=== PATIENT | male | born 1965 | race Caucasian/White ===

== ENCOUNTER → 2019-04-13 | Outpatient (CLI) | payer OTHER ==
[~2019-04-13] MED LIST: None at this Time
[2019-04-13 09:51] LABS: MICROSCOPIC NOT IND
[2019-04-13 09:51] LABS: BASOPHILS # (AUTO) 0.04 x10^3/uL (0-0.1); BASOPHILS % (AUTO) 1 % (0-1); EOSINOPHILS # (AUTO) 0.13 x10^3/uL (0-0.4); EOSINOPHILS % (AUTO) 3 % (1-7); LYMPHOCYTES # (AUTO) 1.29 x10^3/uL (1-3.4); LYMPHOCYTES % (AUTO) 30 % (22-44); MD NO; MEAN CORPUSCULAR HEMOGLOBIN 31.3 pg (27.5-34.5); MEAN CORPUSCULAR HGB CONC 34.1 g/dL (33.2-36.2); MEAN CORPUSCULAR VOLUME 91.8 fL (81-97); MEAN PLATELET VOLUME 8.4 fL (7.4-10.4); MONOCYTES # (AUTO) 0.31 x10^3/uL (0.2-0.8); MONOCYTES % (AUTO) 7 % (2-9); NEUTROPHILS # (AUTO) 2.57 x10^3/uL (1.8-6.8); NEUTROPHILS % (AUTO) 59 % (42-75); PLATELET COUNT 167 x10^3/uL (130-400); RED BLOOD COUNT 5.28 x10^6/uL (4.38-5.82)
[2019-04-13 09:59] LABS: CULTURE INDICATED? NO
[2019-04-13 10:03] LABS: CALCIUM 8.9 mg/dL (8.5-10.1); CHLORIDE 108 mmol/L (98-107); CREATININE 1.24 mg/dL (0.7-1.3)
[2019-04-13 10:15] LABS: INTERNATIONAL NORMALIZED RATIO 0.96 (0.93-1.1); PROTHROMBIN TIME 10.1 Seconds (9.6-11.5)
[2019-04-13 10:33] LABS: ANION GAP 4 mmol/L (5-15)
== END | disposition home or self-care (01) ==
LOC: STAR 08:28
PROVIDERS: ATTEND Neurological Surgery
DX: Z01.818 Encounter for other preprocedural examination (principal); M48.062 Spinal stenosis, lumbar region with neurogenic claudication; Z87.891 Personal history of nicotine dependence
CPT/HCPCS: 36415; 71046; 80048; 81003; 85025; 85610; 85730; 93005

== ENCOUNTER 2019-04-20 05:36 | Inpatient (IN) | payer OTHER ==
[~2019-04-20] VITALS: Ht 175.3 cm; Wt 70.7 kg
[2019-04-20] MEDS ORDERED: LACTATED RINGERS 1,000 ML IV SCH (06:28)
[2019-04-20] MEDS ORDERED: THROMBIN (RECOMBINANT) 5,000 UNIT VIAL TP ONE (06:49)
[2019-04-20] MEDS ORDERED: BUPIVACAINE/PF 0.25% ONE (06:50)
[2019-04-20] MEDS ORDERED: BACITRACIN OINT 500U/GM, 15 GM ONE (06:51)
[2019-04-20] MEDS ORDERED: BACITRACIN 50,000 UNIT ONE (06:51)
[2019-04-20] MEDS ORDERED: EPINEPHRINE 1 MG/ML, 1ML ONE (06:51)
[2019-04-20] MEDS ORDERED: VANCOMYCIN 1,000 MG ONE (06:51)
[2019-04-20] MEDS ORDERED: SCOPOLAMINE PATCH, 1.5MG PATCH.TD72 TD ONE ×2 (07:00→07:05)
[2019-04-20] MEDS ORDERED: ACETAMINOPHEN 500 MG TABLET PO ONE (07:00)
[2019-04-20] MEDS ORDERED: ONDANSETRON ODT 8 MG PO ONE (07:00)
[2019-04-20] MEDS ORDERED: GABAPENTIN 300 MG CAPSULE PO ONE (07:00)
[2019-04-20] MEDS ORDERED: ACETAMINOPHEN 500 MG TABLET ONE (07:04)
[2019-04-20] MEDS ORDERED: ONDANSETRON ODT 8 MG ONE (07:05)
[2019-04-20] MEDS ORDERED: GABAPENTIN 300 MG CAPSULE ONE (07:06)
[2019-04-20] MEDS ORDERED: MIDAZOLAM 1 MG/ML, 2ML ONE (07:12)
[2019-04-20] MEDS ORDERED: CEFAZOLIN 1,000 MG ONE ×2 (07:12)
[2019-04-20] MEDS ORDERED: LIDOCAINE-MPF 2% ,5ML ONE ×2 (07:12)
[2019-04-20] MEDS ORDERED: ROCURONIUM 10MG/ML,5ML ONE (07:12)
[2019-04-20] MEDS ORDERED: PROPOFOL 10 MG/ML, 20ML ONE (07:12)
[2019-04-20] MEDS ORDERED: DEXAMETHASONE 4 MG/ML, 1ML ONE ×2 (07:12)
[2019-04-20] MEDS ORDERED: METOCLOPRAMIDE 5 MG/ML, 2ML ONE (07:13)
[2019-04-20] MEDS ORDERED: KETAMINE 10 MG/ML, 20ML ONE (07:20)
[2019-04-20] MEDS ORDERED: MAGNESIUM SULFATE 1 GM/2 ML ONE (07:20)
[2019-04-20] MEDS ORDERED: LIDOCAINE PF 2%, 5ML ONE (07:30)
[2019-04-20] MEDS ORDERED: LORazepam 2 MG/ML, 1ML IVPush PRN (07:30)
[2019-04-20] MEDS ORDERED: NEOSTIGMINE 1 MG/ML, 10ML ONE (07:30)
[2019-04-20] MEDS ORDERED: MEPERIDINE/PF 25MG/ML,1ML IVPush PRN (07:30)
[2019-04-20] MEDS ORDERED: GLYCOPYRROLATE 0.2MG/1ML, 5ML ONE (07:30)
[2019-04-20] MEDS ORDERED: ONDANSETRON 2MG/ML, 2ML IV PRN ×2 (07:30→12:00)
[2019-04-20] MEDS ORDERED: OXYcodone 5 MG/5 ML ORAL.SOL UDC PO PRN (07:30)
[2019-04-20] MEDS ORDERED: LABETALOL 5MG/ML, 20ML IV PRN (07:30)
[2019-04-20] MEDS ORDERED: HYDROmorphone 2 MG/ML, 1ML IVPush PRN (07:30)
[2019-04-20] MEDS ORDERED: FENTANYL PF 100 MCG/2ML IV PRN (07:30)
[2019-04-20] MEDS ORDERED: hydrALAzine 20 MG/ML, 1ML IV PRN (07:30)
[2019-04-20] MEDS ORDERED: DIPHENHYDRAMINE 50 MG/ML, 1ML IVPush PRN ×2 (07:30→12:00)
[2019-04-20] MEDS ORDERED: FENTANYL PF 100 MCG/2ML ONE (09:54)
[2019-04-20] MEDS ORDERED: METHOCARBAMOL 1,000 MG in DEXTROSE 5% 100 ML IV ONE (10:00)
[2019-04-20] MEDS: OXYcodone/APAP 5/325MG TABLET PO PRN ×3 (11:50→20:38)
[2019-04-20] MEDS ORDERED: HYDROmorphone 2 MG/ML, 1ML IM PRN (12:00)
[2019-04-20] MEDS ORDERED: PROMETHAZINE 25 MG/ML, 1ML IM PRN (12:00)
[2019-04-20] MEDS ORDERED: HYDROmorphone 2MG TABLET PO PRN (12:00)
[2019-04-20] MEDS ORDERED: DIPHENHYDRAMINE 25 MG CAPSULE PO PRN (12:00)
[2019-04-20] MEDS ORDERED: MAGNESIUM HYDROXIDE 8%, 30ML UDC PO PRN (12:00)
[2019-04-20] MEDS ORDERED: HYDROcodone/APAP 5/325 TABLET PO PRN (12:00)
[2019-04-20] MEDS ORDERED: BISACODYL 10 MG SUPP PR PRN (12:00)
[2019-04-20] MEDS ORDERED: DIPHENHYDRAMINE 50 MG/ML, 1ML IM PRN (12:00)
[2019-04-20 13:00] VITALS: BP 107/68
[2019-04-20] MEDS: D5%-0.9% NACL+KCL 20MEQ 1,000 ML IV SCH (15:00)
[2019-04-20] MEDS: CEFAZOLIN PMX 1GM/50ML 50 ML IVPB SCH ×2 (16:14→23:51)
[2019-04-20 19:19] VITALS: BP 112/66
[2019-04-20 23:47] VITALS: BP 105/62
[2019-04-20] MEDS: METHOCARBAMOL 750 MG TABLET PO PRN (23:51)
[2019-04-21] MEDS: OXYcodone/APAP 5/325MG TABLET PO PRN ×3 (00:50→08:48)
[2019-04-21] MEDS: D5%-0.9% NACL+KCL 20MEQ 1,000 ML IV SCH (00:50)
[2019-04-21 02:59] VITALS: BP 103/62
[2019-04-21 06:59] VITALS: BP 95/52
[2019-04-21] MEDS ORDERED: OXYC-302 PO (08:26)
[2019-04-21] MEDS ORDERED: DOXY100T PO (08:27)
[2019-04-21] MEDS ORDERED: METH750T87 PO (08:27)
[2019-04-21] MEDS: METHOCARBAMOL 750 MG TABLET PO PRN (08:47)
[2019-04-21] MEDS ORDERED: SENNA/DOCUSATE TABLET PO SCH (09:00)
== END 2019-04-21 09:33 | disposition home or self-care (01) | DRG 520 ==
LOC: ORIP 05:36 → 4NE 11:18 → DCLOUNGE 04-21 09:23
PROVIDERS: ADMIT Neurological Surgery; ATTEND Neurological Surgery
PROC: 01NB0ZZ Release Lumbar Nerve, Open Approach (ICD-10-PCS; 2019-04-20)
PROC: 00NY0ZZ Release Lumbar Spinal Cord, Open Approach (ICD-10-PCS; 2019-04-20)
PROC: 0SB20ZZ Excision of Lumbar Vertebral Disc, Open Approach (ICD-10-PCS; principal; 2019-04-20 07:30)
DX: M51.17 Intervertebral disc disorders with radiculopathy, lumbosacral region (principal); M48.061 Spinal stenosis, lumbar region without neurogenic claudication; M47.26 Other spondylosis with radiculopathy, lumbar region; G89.29 Other chronic pain; M51.16 Intervertebral disc disorders with radiculopathy, lumbar region; Z82.49 Family history of ischemic heart disease and other diseases of the circulatory system; Z87.891 Personal history of nicotine dependence
CPT/HCPCS: 72100; J3490; C1729; G0378; J0171; J0690; J1100; J2250; J2704; J2710; J3010; J3370; J3475; Q0162; J2765; J2800; J7120